=== PATIENT | male | born 1940 | race Caucasian/White ===

== ENCOUNTER 2018-07-12 03:01 | Inpatient (IN) | payer OTHER ==
[~2018-07-12] VITALS: Ht 170.2 cm; Wt 105.2 kg
[~2018-07-12 03:01] MED LIST: ATIVAN0.5 M1 PO; CIPRO500 MG PO; CIPRO750 MG PO; NAPROXEN; NORCO1 TA2 PO; PAX20 PO; PROPECIA1 MG PO; PROS5 PO; SIMVASTATIN10 M1 PO; TERAZOSIN; [UNRECOGNIZED DRUG - OTHER]; [UNRECOGNIZED DRUG - OTHER] PO
[2018-07-12 03:04] VITALS: Ht 170.2 cm; Wt 105.2 kg
--- NOTE | 2018-07-12 03:30 | NUR ---
PT PRESENT TO ED BIB WITH C/O CHEST PAIN AND SOB X2 WEEKS. PT STS SOB INCREASES WHEN HE LIES DOWN. PT STS CHEST PAIN FEELS LIKE PRESSURE AND IS BECOMES WORSE WITH EXERTION. PT REPORTS HAVING NEW ONSET DIAPHORESIS AT NIGHT AND NOT BEING UNABLE TO SLEEP DUE TO SOB. LOUD DRY COUGH NOTED. PT DENIES ABDOMINAL PAIN, N/V/D, FEVER, OR SYNCOPE. PT SITTING UP ON GURNEY, AAOX4, RESP E/U, NO ACUTE DISTRESS NOTED AT THIS TIME.
[2018-07-12 03:47] LABS: BASOPHIL % 0.4 % (0-2); PLATELET COUNT 273 x10^3mcL (130-400); RED CELL DISTRIBUTION WIDTH 13.6 % (11.5-14.5)
[2018-07-12 03:59] LABS: CALCIUM 8.9 mg/dL (8.5-10.1); CARBON DIOXIDE 28.6 mmol/L (21-32); CHLORIDE SERUM 99 mmol/L (98-107); CREATININE SERUM 1.1 mg/dL (0.7-1.3); GLUCOSE SERUM 122 mg/dL (74-106); POTASSIUM SERUM 3.6 mmol/L (3.5-5.1); SODIUM SERUM 137 mmol/L (136-145)
[2018-07-12 04:04] LABS: ALBUMIN 3.9 g/dL (3.4-5.0); ALKALINE PHOSPHATASE 69 U/L (46-116); ALT/SGPT 48 U/L (16-63); AST/SGOT 34 U/L (15-37); BILIRUBIN TOTAL 0.37 mg/dL (0.20-1.00); TOTAL PROTEIN, SERUM 7.4 g/dL (6.4-8.2)
--- NOTE | 2018-07-12 05:10 | NUR ---
PT C/O PAIN WITH ROCEPHN ADMINISTRATION. NOTIFIED. PER SLOW DOWN IV RATE FROM 200ML/HR TO 150ML/HR.
[2018-07-12 06:02] VITALS: BP 163/74
--- NOTE | 2018-07-12 06:42 | NUR ---
PT SITTING UP ON SIDE OF GURNEY, ON CM, AAOX4, RESP E/U, NO ACUTE DISTRESS NOTED AT THIS TIME. PT AT BEDSIDE.
--- NOTE | 2018-07-12 07:34 | NUR ---
REPORT GIVEN TO NEVIN BRENNER ON TELE UNIT TO ASSUME CARE OF PT.
--- NOTE | 2018-07-12 07:55 | NUR ---
RC'D PT FROM ED VIA [facility] WITH NURSE PRESENT AT BEDSIDE. A/A/AO/X4, SPEECH CLEAR AND APPRORPIATE. PT CONFUSED AT TIMES. ON TELE WITH ST, PT DENIES CHEST PAIN/PRESSURE. PALP PULSES. RESPIRATIONS EQUAL AND SLIGHTLY SHALLOW/ LABORED. WHEEZE NOTED. ON RA, DENIES SOB AT THIS TIME. ABDOMEN ROUND AND NONTNEDER. ACTIVE BS. DENIES N/V. VOIDS FREELY, INCONITNENT AT TIMES. GENERALIZED WEAKNESS. SKIN W/D/I. PT DENIES PAIN AT THIS TIME. IV PATENT AND INTACT. BED IN LOW POSITION. CALL LIGHT IN REACH. WILL CONTINUE TO MONITOR
[2018-07-12 11:00] VITALS: BP 182/78
[2018-07-12 12:26] VITALS: BP 136/60
--- NOTE | 2018-07-12 12:44 | NUR ---
PT RESTING IN BED WITH FAMILY PRESENT IN BEDSIDE. NO APPARENT SIGNS OF DISTRESS. PT DENIES PAIN AT THIS TIME. BED IN LOW POSITION. CALL LIGHT IN REACH. WILL CONTINUE TO MONITOR
[2018-07-12 17:39] VITALS: BP 162/76
--- NOTE | 2018-07-12 18:42 | NUR ---
PT RESTING IN BED WITH NO APPARENT SIGNS OF DISTRESS. ON TELE, DENIES CHEST PAIN AT THIS TIME. PT REPORTS "GASSY". RESPIRATIONS EQUAL AND SLIGHTLY LABORED. ON RA, DENIES SOB. PT USES URINAL BUT INCONTINENT AT TIMES. GENERALIZED WEAKNESS. NO ACUTE SKIN CHANGES NOTED AT THIS TIME. PT DENIES PAIN AT THIS TIME. IV PATENT AND INTACT. BED IN LOW POSITION. CALL LIGHT IN REACH. WILL ENDORSE TO COMPETENCY EVALUATED NURSE AIDE RN.
--- NOTE | 2018-07-12 20:37 | NUR ---
PT A/A/O X4, CONFUSED AT TIMES. DENIES DIZZINESS AND HEADACHE. BREATH SOUNDS CLEAR. BREATHING EVEN AND UNLABORED ON ROOM AIR, SPO2 95%. C/O MILD CHEST PAIN. GAVE PT NORCO PO. PT TOLERATED IT WELL. BOWEL SOUNDS ACTIVE. NO C/O N/V AND ABD PAIN. PITTING EDEMA NOTED ON BLE. IV HEPLOCK INTACT ON THE RIGHT FOREARM. MADE PT COMFORTABLE. PLACED CALL LIGHT WITH IN REACH. WILL CONTINUE TO MONITOR.
[2018-07-12 21:04] VITALS: BP 150/78; BP 152/80
--- NOTE | 2018-07-13 02:36 | NUR ---
PT RESTLESS AND AGGITATED. GAVE PT ATIVAN PO. PT TOLERATED IT WELL. PT WAS PUT ON BI PAP BY RT. PT DID NOT TOLERATE IT. PT AGAIN ON ROOM AIR SPO2 97%. MADE PT COMFORTABLE. WILL CONTINUE TO MONITOR.
--- NOTE | 2018-07-13 03:11 | NUR ---
PT FEELING SOB. PLACED PT ON BIPAP @ 0210. DID NOT SHAWN BIPAP.
--- NOTE | 2018-07-13 06:28 | NUR ---
PT RESTING WITH EYES CLOSED. EASILY AROUSABLE WITH VERBAL STIMULI. DENIES CHEST PAIN THUS FAR. MADE PT COMFORTABLE. WILL ENDORSE TO THE AM NURSE ACCORDINGLY.
[2018-07-13 06:43] VITALS: BP 145/63
[2018-07-13 06:46] LABS: CALCIUM 8.6 mg/dL (8.5-10.1); CARBON DIOXIDE 26.6 mmol/L (21-32); CHLORIDE SERUM 105 mmol/L (98-107); CREATININE SERUM 0.7 mg/dL (0.7-1.3); GLUCOSE SERUM 105 mg/dL (74-106); POTASSIUM SERUM 3.9 mmol/L (3.5-5.1); SODIUM SERUM 139 mmol/L (136-145)
[2018-07-13 08:08] LABS: BASOPHIL % 0.7 % (0-2); PLATELET COUNT 245 x10^3mcL (130-400); RED CELL DISTRIBUTION WIDTH 13.7 % (11.5-14.5)
--- NOTE | 2018-07-13 08:20 | NUR ---
MADE AWARE BY [employer] THAT PT'S IV IS NOT WORKING. NEW IV INSERTED 22G TO LT HAND.
--- NOTE | 2018-07-13 08:40 | NUR ---
PT TAKEN DOWN TO NUCLEAR MED FOR LORETA. TELE MONITOR MADE AWARE.
--- NOTE | 2018-07-13 10:12 | NUR ---
ECHOCARDIOGRAM PENDING-NOT IN ROOM
--- NOTE | 2018-07-13 10:35 | NUR ---
ECHOCARDIOGRAM PENDING-NOT IN ROOM
--- NOTE | 2018-07-13 10:53 | NUR ---
PT BACK FROM NUCLEAR MED AT THIS TIME. APPEARS FREE OF ANY APPARENT DISTRESS.
[2018-07-13 13:27] VITALS: BP 154/68
--- NOTE | 2018-07-13 15:50 | NUR ---
PT C/O ACID REFLUX, DR. COOLEY OFFICE CALLED AND MESSAGE LEFT FOR MD TO CALL BACK. AWAITING ORDERS.
--- NOTE | 2018-07-13 16:03 | NUR ---
DR. COOLEY RETURN CALL MADE AWARE OF LEXISCAN NEG FOR REVERSABLE INSCHEMIA. NOTIFIED PT IS C/O ACID REFLUX RECEIVED ORDER FOR PROTONIX 40MG PO BID AC MEALS. ORDER TRANSCRIBED. WILL CONT TO MONITOR.
[2018-07-13 17:08] VITALS: BP 157/76
--- NOTE | 2018-07-13 17:10 | NUR ---
PT C/O ANXIETY MEDICATED WITH ATIVAN 1MG PO PRN ORDERED. WILL CONT TO MONITOR.
--- NOTE | 2018-07-13 18:24 | NUR ---
PT RESTING COMFORTBLY AT THIS TIME WITH JIM T BEDSIDE. CALL LIGHT IN REACH NEEDS ATTENDED TO.
--- NOTE | 2018-07-13 20:12 | NUR ---
RECEIVED PT IN BED, ALERT AND ORIENTED. CONFUSED AT TIMES, RESTING QUIETLY AT THIS TIME. DENIES HEADACHE/DIZZINESS. RESP. EVEN AND UNLABORED. ON ROOM AIR, NO ACUTE DISTRESS NOTED. SR ON THE MONITOR, DENIES CHEST PAIN OR ANY DISCOMFORT. HL TO LT HAND, INTACT AND PATENT. VOIDING FREELY. CALL LIGHT WITHIN REACH. WILL CONTINUE TO MONITOR.
[2018-07-13 20:26] VITALS: BP 150/66
--- NOTE | 2018-07-13 23:45 | NUR ---
DUE MEDS GIVEN ORDERED.SHAWN WELL.REQUESTED SLEEPING MED, MEDICATED ORDERED. WILL CONTINUE TO MONITOR.
--- NOTE | 2018-07-14 01:51 | NUR ---
AWAKE, YELLING, AGITATED, RE-ORIENTED TO TIME AND PLACE. ATIVAN PO GIVEN ORDERED. KEPT COMFORTABLE IN BED. WILL CONTINUE TO MONITOR.
[2018-07-14 04:54] VITALS: BP 166/68
--- NOTE | 2018-07-14 06:15 | NUR ---
PULLED OUT HL , WILL RE-INSERT. CONFUSED AND AGITATED AT TIMES. SITTING UP IN CHAIR AT THE BEDSIDE AT THIS TIME. RESP. EVEN AND UNLABORED. ON ROOM AIR, NO ACUTE DISTRESS NOTED.AFEBRILE AND VITAL SIGNS STABLE. DUE MEDS GIVEN ORDERED. SHAWN. WELL. NO COMPLAINTS NOTED AT THIS TIME. WILL CONTINUE TO MONITOR.
--- NOTE | 2018-07-14 07:55 | NUR ---
AWAKE,ALERT AND ABLE TO VERBALIZED NEEDS,W/PERIODS OF FORGETFULNESS. UP AND ABOUT TO BEDSID AND CHAIR.AMBULATED IN THE BATHROOM AND VOIDING WELL.HL PATENT.QUITE AT THIS TIME. WILL CONT. TO MONITOR PT.
[2018-07-14 09:43] VITALS: BP 159/69
[2018-07-14 12:21] VITALS: BP 149/80
[2018-07-14 13:03] VITALS: BP 149/80
[2018-07-14] MEDS ORDERED: COZ25 PO (13:58)
[2018-07-14] MEDS ORDERED: LEVAQUIN750 MG PO (13:58)
--- NOTE | 2018-07-14 15:12 | NUR ---
PT. WENT HOME W/ STABLE CONDITION AMBULATORY ACC. W/ HIS .NO ACUTE DISTRESS NOTED.DISCHARGED INSTRUCTIONS AND PRESCRIPTION GIVEN AND DISCUSSED TO PT. AND VERBALIZED UNDERSTANDING OF INSTRUCTIONS GIVEN . SCORTED BY CATE IN THE LOBBY.
== END 2018-07-14 15:00 | disposition home or self-care (01) | DRG 194 ==
LOC: ED 03:01 → DU 05:05
PROVIDERS: Emergency Medicine; ADMIT Internal Medicine
DX: J18.9 Pneumonia, unspecified organism (principal); M62.82 Rhabdomyolysis; I24.9 Acute ischemic heart disease, unspecified; J98.11 Atelectasis; R09.02 Hypoxemia; I11.9 Hypertensive heart disease without heart failure; I25.10 Atherosclerotic heart disease of native coronary artery without angina pectoris; F41.9 Anxiety disorder, unspecified; E78.5 Hyperlipidemia, unspecified; N40.0 Benign prostatic hyperplasia without lower urinary tract symptoms; Z68.36 Body mass index [BMI] 36.0-36.9, adult
CPT/HCPCS: 82962; 83880; 87804; A9500; J0696; J1644; J1940; J1956; J2060; J2785; J7050; J7620; Q0092

== ENCOUNTER 2018-08-01 12:37 | Emergency (ER) | payer OTHER ==
[~2018-08-01] VITALS: Ht 170.2 cm; Wt 86.2 kg
[~2018-08-01 12:37] MED LIST changes: +COZ25 PO; +LEVAQUIN750 MG PO
[2018-08-01 12:51] VITALS: Ht 170.2 cm; Wt 86.2 kg
[2018-08-01 14:01] LABS: BASOPHIL % 0.6 % (0-2); PLATELET COUNT 311 x10^3mcL (130-400); RED CELL DISTRIBUTION WIDTH 13.6 % (11.5-14.5)
[2018-08-01 14:06] LABS: CALCIUM 9.3 mg/dL (8.5-10.1); CARBON DIOXIDE 26.5 mmol/L (21-32); CHLORIDE SERUM 105 mmol/L (98-107); GLUCOSE SERUM 140 mg/dL (74-106); POTASSIUM SERUM 3.9 mmol/L (3.5-5.1); SODIUM SERUM 139 mmol/L (136-145)
[2018-08-01 14:10] LABS: ALBUMIN 3.8 g/dL (3.4-5.0); ALKALINE PHOSPHATASE 61 U/L (46-116); ALT/SGPT 37 U/L (16-63); AST/SGOT 22 U/L (15-37); BILIRUBIN TOTAL 0.44 mg/dL (0.20-1.00); TOTAL PROTEIN, SERUM 7.3 g/dL (6.4-8.2)
[2018-08-01 15:22] VITALS: BP 167/100
== END 2018-08-01 15:23 | disposition home or self-care (01) ==
LOC: ED 12:37
PROVIDERS: Emergency Medicine
DX: G47.00 Insomnia, unspecified (principal); R41.0 Disorientation, unspecified; E78.00 Pure hypercholesterolemia, unspecified; I10 Essential (primary) hypertension; Z98.890 Other specified postprocedural states
CPT/HCPCS: 36415; Q0092

== ENCOUNTER 2018-12-06 10:40 | Emergency (ER) | payer OTHER ==
[~2018-12-06] VITALS: Ht 175.3 cm; Wt 87.5 kg
[2018-12-06 10:43] VITALS: Ht 175.3 cm; Wt 87.5 kg
[2018-12-06 11:30] LABS: BASOPHIL % 0.3 % (0-2); PLATELET COUNT 343 x10^3mcL (130-400); RED CELL DISTRIBUTION WIDTH 13.6 % (11.5-14.5)
[2018-12-06 11:37] LABS: CALCIUM 9.7 mg/dL (8.5-10.1); CARBON DIOXIDE 30.6 mmol/L (21-32); CHLORIDE SERUM 107 mmol/L (98-107); CREATININE SERUM 0.8 mg/dL (0.7-1.3); GLUCOSE SERUM 115 mg/dL (74-106); POTASSIUM SERUM 3.7 mmol/L (3.5-5.1); SODIUM SERUM 144 mmol/L (136-145)
[2018-12-06 11:41] LABS: ALBUMIN 3.6 g/dL (3.4-5.0); ALKALINE PHOSPHATASE 60 U/L (46-116); ALT/SGPT 37 U/L (16-63); AST/SGOT 19 U/L (15-37); BILIRUBIN TOTAL 0.3 mg/dL (0.20-1.00); CHOLESTEROL 188 mg/dL (<200); TOTAL PROTEIN, SERUM 7.4 g/dL (6.4-8.2)
[2018-12-06 14:07] VITALS: BP 148/62
== END 2018-12-06 14:07 | disposition home or self-care (01) ==
LOC: ED 10:40
PROVIDERS: Specialist
DX: E86.0 Dehydration (principal); R45.1 Restlessness and agitation; I10 Essential (primary) hypertension; E78.00 Pure hypercholesterolemia, unspecified
CPT/HCPCS: 87804; G0480; J1885; J1956; J7030; Q0092